=== PATIENT | male | born 1960 | race Caucasian/White ===

== ENCOUNTER 2024-08-27 06:48 | Day surgery (SDC) | payer MEDICARE, OTHER ==
[2024-08-27] MEDS ORDERED: Depo-Medrol 40 MG/ML IM ONE (06:49)
[2024-08-27] MEDS ORDERED: dexAMETHasone sodium phosphate IJ ONE (06:49)
[2024-08-27] MEDS ORDERED: BUPIVACAINE 0.5% VIAL IJ ONE (06:49)
[2024-08-27] MEDS ORDERED: LIDOCAINE HCL 1% AMPUL 5 ML IJ ONE (06:49)
[2024-08-27] MEDS ORDERED: propofoL IV ONE ×2 (09:00→09:16)
--- NOTE | 2024-08-27 10:01 | XRAY ---
46 seconds of fluoroscopy was used in surgery for a right greater trochanteric bursa and piriformis injection.
--- NOTE | 2024-08-27 12:07 | XRAY ---
Indication: Right piriformis and right greater trochanter bursa injection. Intraoperative fluoroscopy provided for 46 seconds. 4 digital spot images obtained prone submitted for interpretation demonstrates posterior needle tip projecting over right piriformis. Second new tip lateral to greater trochanter. Small amount of contrast injected for both needle tip placement. Correlate with intraoperative findings/report. Incidental right total hip arthroplasty.
== END 2024-08-27 09:38 | disposition home or self-care (01) ==
LOC: SDC-PAIN 06:48
PROVIDERS: ATTEND Psychiatry & Neurology Pain Medicine
DX: M70.61 Trochanteric bursitis, right hip (principal); E11.9 Type 2 diabetes mellitus without complications; M79.18 Myalgia, other site
CPT/HCPCS: 20552; 20610; 73501; 77002; 82947; J1100; J2704; Q9966

== ENCOUNTER 2024-10-01 09:05 | Day surgery (SDC) | payer MEDICARE, OTHER ==
[2024-10-01] MEDS ORDERED: Sodium Chloride 0.9(Preservative Free) 10 ML IJ ONE (09:06)
[2024-10-01] MEDS ORDERED: dexAMETHasone sodium phosphate IJ ONE (09:06)
[2024-10-01] MEDS ORDERED: propofoL IV ONE (11:40)
[2024-10-01] MEDS ORDERED: MORPHINE SULFATE 2 MG INJ ONE (11:58)
--- NOTE | 2024-10-01 12:54 | XRAY ---
30 seconds of fluoroscopy was used in surgery for a right L4-S1 transforaminal JORGE L.
--- NOTE | 2024-10-01 12:55 | XRAY ---
Indication: Right L4-S1 transforaminal JORGE L. Intraoperative fluoroscopy provided for 30 seconds. 3 digital spot images submitted for interpretation demonstrates posterior needle tips projecting over expected right L4 and L5 nerve roots. Small amount of contrast injected for needle tip placement. Correlate with intraoperative findings/report.
== END 2024-10-01 12:25 | disposition home or self-care (01) ==
LOC: SDC-PAIN 09:05
PROVIDERS: ATTEND Psychiatry & Neurology Pain Medicine
DX: M54.16 Radiculopathy, lumbar region (principal); E11.9 Type 2 diabetes mellitus without complications
CPT/HCPCS: 64483; 64484; 72100; 77003; 82947; J1100; J2270; J2704; Q9966